=== PATIENT | male | born 1940 | race Caucasian/White ===

== ENCOUNTER → 2019-01-31 06:14 | Outpatient (CLI) | payer MEDICARE, SELFPAY ==
--- NOTE | 2019-01-31 06:22 | ECHOCS_ITS ---
Reason For Study: SOB Procedure This was a 2D Doppler, Color Flow transthoracic echocardiogram. The study was technically difficult. Contrast injection was performed. Exam performed in department. Left Ventricle Normal LV size. Left ventricular systolic function is normal. Stage 1 diastolic dysfunction. No regional wall motion abnormalities noted. Right Ventricle Normal RV size. Normal systolic function. Atria Normal left atrium. Normal right atrium. Mitral Valve Normal mitral valve. Tricuspid Valve The tricuspid valve is not well visualized. Mild tricuspid valve insufficiency. Pulmonary artery systolic pressure is 30 mmHg. Aortic Valve Normal aortic valve. Mild (1+) aortic valve insufficiency. Pulmonic Valve Normal pulmonic valve. Great Vessels Normal aortic root. The pulmonary artery is normal size. Normal inferior vena cava. Pericardium/Pleural No pericardial effusion. Medication Definity3.0ml given slow IV push to enhance endocardial definition. MMode/2D Measurements & Calculations LVIDd: 4.2 cm IVSd: 0.98 cm LVOT diam: 2.0 cm LVIDs: 2.6 cm LVPWd: 0.91 cm RVDd: 3.0 cm FS: 38.7 % LVOT area: 3.3 cm2 Ao root diam: 3.8 cm LAV(MOD-bp): 42.9 ml LA A4 area: 12.0 cm2 LAV(MOD-bp) Indexed: 22.1 ml/m2 LAV(MOD-sp2): 50.1 ml LAV(MOD-sp4): 27.6 ml LA dimension(2D): 3.9 cm RA A4 area: 9.3 cm2 Time Measurements MV dec time: 0.26 sec Doppler Measurements & Calculations MV E max kamaljit: 63.1 cm/sec Lat Peak E' Kamaljit: 7.5 cm/sec Med Peak E' Kamaljit: 4.8 cm/sec MV A max kamaljit: 82.0 cm/sec E/E' lat: 8.4 E/E' med: 13.2 MV E/A: 0.77 Ao V2 max: 129.3 cm/sec AI max kamaljit: 386.7 cm/sec LV V1 max: 87.8 cm/sec Ao max P.7 mmHg AI max P.8 mmHg LV V1 max P.1 mmHg IRASEMA(V,D): 2.2 cm2 AI dec slope: 188.4 cm/sec2 AI P1/2t: 601.3 msec PA V2 max: 93.0 cm/sec TR max kamaljit: 253.1 cm/sec TR max P.7 mmHg Interpretation Summary Normal LV size. Left ventricular systolic function is normal. Stage 1 diastolic dysfunction. Pulmonary artery systolic pressure is 30 mmHg. Mild (1+) aortic valve insufficiency. Contrast injection was performed. Ordering Physician: Cosme Amor Referring Physician: JOAN SMITH Performed By: Katharine Kelly, [facility], RVT
--- NOTE | 2019-01-31 12:18 | STRESSREP ---
Stress Test Report Pharmacologic myocardial perfusion stress test 78-year-old man with a history of chest pain. Stress protocol: Resting EKG demonstrates normal sinus rhythm with a rate of 55 bpm normal intervals are noted resting blood pressures 138/82 mmHg. 0.4 mg of regadenoson was infused per usual protocol followed by rapid intravenous saline flush injection continuous EKG monitoring was performed. The maximum heart rate attained was 71 bpm which was 49% of maximum predicted heart rate the maximum workload was 1 metabolic equivalent. The resting blood pressures 138/82 mmHg final blood pressures 130/70 mmHg. Myocardial perfusion protocol. 12.0 mCi technetium 99m sestamibi was injected at rest. 0.4 mg of regadenoson was infused per usual protocol. Peak infusion 36.0 mCi of technetium 99m sestamibi was injected stress images were obtained stress and rest images were reconstructed and compared in the short axis vertical and horizontal long axis. Gated images was obtained Perfusion SPECT analysis: Review of the stress images demonstrate normal uptake of tracer noted in all rest myocardium the rest images similar demonstrate normal uptake of tracer noted in all rest myocardium no areas of reversibility are noted suggest ischemia. Gated SPECT analysis: The gated ejection fraction was noted to be 74% Conclusion: Normal pharmacologic myocardial perfusion stress test. Preserved ejection fraction.
== END ==
PROVIDERS: Family Provider Student in an Organized Health Care Education/Training Program; PCP Student in an Organized Health Care Education/Training Program
DX: R06.02 Shortness of breath (principal); R00.2 Palpitations
CPT/HCPCS: 78452; 93017; 93306; A9500; Q9957; A4216; C8929; J2785

== ENCOUNTER → 2019-02-04 08:37 | Outpatient (CLI) | payer MEDICARE, SELFPAY ==
[2013-06-17 20:08] VITALS: BMI 29.2
--- NOTE | 2019-02-04 14:36 | PFTCOMP_ITS ---
COMPLETE PULMONARY FUNCTION TEST INTERPRETATION Brief HPI: Patient is a 78 year old male, currently under the care of Dr. Limon, who presents to [facility] for complete pulmonary function tests secondary to diagnosis of dyspnea. Respiratory therapist reports good effort and reproducible results. Interpretation: Forced expiration spirometry shows no large airways obstructive ventilatory defect with an FEV1 of 110% predicted. There is no significant bronchodilator response by strict ATS criteria. Spirograms are of good quality and plateau normally. The respiratory flow volume loop shows a normal pattern. Lung volumes by body plethysmography show a normal total lung capacity at 5.92 L, 106% predicted. All other lung volumes are within normal limits. Diffusion capacity by carbon monoxide is normal at 93% predicted. The airway resistance is slightly elevated. No previous pulmonary function tests were available for review. Impression: These pulmonary function tests are grossly within normal limits.
== END ==
PROVIDERS: Family Provider Student in an Organized Health Care Education/Training Program; PCP Student in an Organized Health Care Education/Training Program; Referring Provider Nurse Practitioner Family; Visit Provider Nurse Practitioner Family
DX: R06.02 Shortness of breath (principal)
CPT/HCPCS: 94060; 94726; 94729

== ENCOUNTER 2020-04-02 23:30 | Inpatient (IN) | payer MEDICARE, SELFPAY ==
[2019-03-21 11:32] VITALS: BMI 30.3
[2020-04-02 23:31] VITALS: BP 151/90; PULSE 99; RESP 17; O2SAT 97
[2020-04-02 23:34] VITALS: PULSE 100; RESP 18; TEMP 36.4; O2SAT 98; BMI 29.0
[2020-04-02 23:37] VITALS: BP 151/90; PULSE 91; RESP 17; TEMP 36.4; O2SAT 96
--- NOTE | 2020-04-02 23:37 | EKG12_ITS ---
Test Reason : STEMI Blood Pressure : / mmHG Vent. Rate : 070 BPM Atrial Rate : 070 BPM P-R Int : 148 ms QRS Dur : 088 ms QT Int : 452 ms P-R-T Axes : 005 014 110 degrees QTc Int : 488 ms Normal sinus rhythm with sinus arrhythmia Inferior infarct , possibly acute T wave abnormality, consider lateral ischemia * ACUTE OK Confirmed by PALOMO MARSHALL, KOBE ([id number]), editor at large CLARA JOHNSON ([id number]) on 04/05/2020 1:12:34 PM Referred By: Florian Hunt Confirmed By:KOBE CULVER MD
[2020-04-02 23:38] VITALS: O2SAT 97
--- NOTE | 2020-04-02 23:38 | ED.VIS.GEN ---
History of Present Illness Chief Complaint: Chest Pain Informant: Patient Narrative: Patient stated he was having increased shortness of breath today and over the last several weeks. He has had chronic shortness of breath and chronic chest tightness. He has had a negative stress test in the past as well as a normal echocardiogram recently. He had COVID-19 on December and has been having trouble since. He was seen outpatient [facility] had EKG that showed inferior STEMI. Given oral aspirin and nitroglycerin and brought in by paramedics. He was accepted by cardiology STEMI physician. Currently the patient is resting comfortably. No pain in his chest. - Past Medical History (1) Palpitations Status: Acute (2) Dyspnea Status: Chronic (3) Essential (primary) hypertension Status: Chronic Past Medical History - Allergies and Home Meds Allergies/Adverse Reactions: Allergies dutasteride [From Avodart] Adverse Reaction (Verified 03/20/19 21:18) dyspnea imipramine Adverse Reaction (Verified 03/20/19 21:18) dyspnea Primary Care Physician: Hilario Kim DO [Primary Care Provider] - Prior records reviewed: Yes Past Medical History: - - See problem list Surgical History: appendectomy Lives: With Family Smoking Status: Heavy Smoker (>10/day) Alcohol: None Drugs: None Review of Systems General: Denies: Chills, Fever, Sweats Eyes: Denies: Visual changes - bilaterally, Diplopia ENT: Denies: Rhinorrhea, Sore throat Cardiovascular: Reports: - - Chronic chest tightness. Denies: Chest pain, Palpitations Respiratory: Reports: Dyspnea. Denies: Cough, Dyspnea on exertion Gastrointestinal: Denies: Abdominal pain, Nausea, Vomiting, Diarrhea, Melena, Hematochezia Genitourinary: Denies: Dysuria, Hematuria, Frequency Musculoskeletal: Denies: Back pain, Extremity Pain Skin: Denies: Rash, Wounds Neurological: Denies: Headache, Weakness, Numbness Physical Exam Vital Signs/Narrative: Vital Signs Temp Pulse Resp Pulse Ox 04/02/20 23:34 97.5 F L 100 18 98 04/02/20 23:31 17 General: Well nourished, Well developed, No Acute Distress Head: Normocephalic, Atraumatic Eyes: Perrl, EOMI ENT: Moist mucous membranes, No rhinorrhea Neck: Supple, Nontender Cardiovascular: Regular rate, Regular rhythm, No murmurs Respiratory: No distress, CTA bilaterally, Chest nontender Abdomen: Soft, Nontender, Nondistended, Normal bowel sounds Back: Nontender, Normal Inspection Extremities: Nontender, No edema Skin: Normal color, No rash Neurological: Alert, Oriented x3, Cranial nerves II-XII grossly intact, Normal Strength, Normal Sensation Psychological: Normal affect, Normal Mood Diagnostic/Tx/Re-eval - Medical Decision Making STEMI alert called from the field. [facility] being mobilized. Cardiology does not want any further medications at this time. I did remove the nitroglycerin off the patient's chest wall as he has having an inferior [place] and I do not want to drop his blood pressures. Disposition is to the [facility] - Critical Care Time Critical care time (excluding procedures): 30-74 minutes ED Disposition - Plan for ED Patient: Disposition: Acute Care Hospital [facility] Diagnosis: ST elevation myocardial infarction (STEMI)
--- NOTE | 2020-04-02 23:45 | RAD_ITS ---
HISTORY: chest pain. EXAM: XR Chest 1 View: COMPARISON: None FINDINGS: # of images incl. paperwork: 1 Calcified pleural plaques are present bilaterally. Some underlying airspace disease is suspected Calcific ASCVD within the aortic arch Heart is not enlarged. Thoracic spondylosis is mild Pulmonary vascularity is slightly indistinct. No effusions. 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 There may be some underlying airspace disease as well. This is difficult to assess through the calcified pleural plaques. Calcific ASCVD within the aortic arch. Recommend comparison with any previous imaging to assess for the acuity of the findings. at [id number] Reported and signed by: Orion England MD Electronically Signed: Orion England MD at 23:56 EST Tel , Service support ,
[2020-04-02 23:49] LABS: Absolute Lymphocyte Count 0.78 X10^3/uL (0.83-4.51); Absolute Neutrophil Count 9.5 X10^3/uL (2.0-7.7); Basophil# 0.03 X10^3/uL; Basophil% 0.3 % (0-1); Eosinophil# 0.02 X10^3/uL; Eosinophils% 0.2 % (0-5); Hematocrit 41.4 % (40-54); Hemoglobin 14.6 g/dL (13.0-16.5); Lymphocyte # 0.78 X10^3/ul (4.0); Lymphocyte % 7.4 % (19-41); Mean Corp Hgb Conc 35.3 g/dL (32-36); Mean Corpuscular Volume 96.5 fL (80-94); Monocyte# 0.12 X10^3/uL; Monocyte% 1.1 % (0-10); NRBC Flagged by Analyzer 0 % (0-5); Neutrophil # 9.48 X10^3/uL (2.7-7.7); Neutrophil % 90.6 % (47-70); Platelet Count 275 K/mm3 (150-450); RBC Distribution Width SD 46.6 fl (35.1-43.9); Red Blood Count 4.29 M/mm3 (4.6-6.2); White Blood Count 10.5 K/mm3 (4.4-11.0)
--- NOTE | 2020-04-02 23:52 | PCM.HP.CAR ---
Problem List (1) ST elevation myocardial infarction (STEMI) Status: Acute Qualifiers: Involved coronary artery: right coronary artery Qualified Code(s): I21.11 - ST elevation (STEMI) myocardial infarction involving right coronary artery Comment: We will proceed with emergency cardiac catheterization (2) Dyspnea Status: Chronic Comment: Secondary to acute inferior wall myocardial infarct, will go for emergency PCI (3) Essential (primary) hypertension Status: Chronic Comment: Patient will go back on lisinopril History of Present Illness Date of Admission: 04/02/20 Chief Complaint: CP The patient is a 79 year old M [developed sudden onset of shortness of breath 3 hours prior to admission. It was seen in another hospital emergency room was found to have acute inferior wall myocardial infarct and was transferred here for further STEMI intervention. His cardiac history dates back at least 6 months ago at that time patient was investigated for substernal heaviness with exertion. Apparently the nuclear stress test and echocardiogram were not impressive. He continues to have on and off left-sided substernal heaviness with exertion associated with shortness of breath. The end of December patient contracted Covid with pneumonia. Was treated at home with steroids. He is known to have hypertension and hyperlipidemia. He is a non-smoker and drinks occasionally. He denies any history of myocardial infarct cerebrovascular accident] Past Medical History Allergies/Adverse Reactions: Allergies dutasteride [From Avodart] Adverse Reaction (Verified 04/02/20 23:41) dyspnea imipramine Adverse Reaction (Verified 04/02/20 23:41) dyspnea Home Medications: Ambulatory Orders Medication Instructions Recorded RX: Citalopram Hydrobromide 40 mg PO DAILY 06/11/13 [Celexa] RX: Diclofenac [Voltaren] 75 mg PO BIDCM #1 06/19/13 aspirin 325 mg tablet 325 mg PO DAILY 03/21/19 lisinopril 10 mg tablet 10 mg PO DAILY #90 tab 03/21/19 Past Medical History (Chronic Problems): Chronic Problems (Last Reviewed 03/21/19 @ 11:40 by Sheeba Martines) Dyspnea (Chronic) Secondary to acute inferior wall myocardial infarct, will go for emergency PCI Essential (primary) hypertension (Chronic) Patient will go back on lisinopril Surgical History: appendectomy, - - Left knee surgery Psychiatric History: No pertinent psych hx Lives: Spouse/ Significant Other, With Family Smoking Status: Heavy Smoker (>10/day) Tobacco Use: Non-smoker Alcohol: None Drugs: None Review of Systems - Review of Systems General: Reports: Fatigue HEENT: Reports: Hearing Changes. Denies: Vision Change Cardiovascular: Reports: Chest Discomfort, Shortness of Breath Respiratory: Reports: Shortness of Breath Gastrointestinal: Denies: Hematemesis, Hematochezia, Melena Genitourinary: Reports: - - Benign prostatic hypertrophy Skin: Denies: Rash Neurological: Reports: Weakness. Denies: Dizziness, Vertigo Endocrine: Denies: Heat Intolerance Hematologic/ Lymphatic: Denies: Lymph Node Enlargement Subjectve: Complaint shortness of breath and left-sided chest tightness Objective: Vital Signs Temp Pulse Resp BP Pulse Ox 97.6 F L 91 17 151/90 H 97 04/02/20 23:37 04/02/20 23:37 04/02/20 23:37 04/02/20 23:37 04/02/20 23:38 Oxygen Flow Rate (L/min) 2 Oxygen Delivery Method Nasal Cannula Weight: 190 lb 14.725 oz Body Mass Index (BMI) 29.0 General: Healthy Appearing, Awake, Alert, Oriented x 3, Cooperative HEENT: Atraumatic Oral: Moist Mucosa Neck: Supple Lungs: Clear to auscultation Cardiovascular: Regular Rhythm, Normal S1, Normal S2, No Murmurs, No Rubs, No Gallops Vascular: No Carotid Bruits, Normal Femoral Pulses, Normal Radial Pulses, Normal Dorsalis Pedal Pulse, Normal Posterior Tibial Pulses Abdomen: Bowel Sounds Present, Soft, Non Tender, No HSM, No Organomegaly Extremities: No Cyanosis, No Clubbing, No edema Neurological: No Focal Motor or Sensory Deficit Psych/Mental Status: Appropriate, Normal Affect VTE Information - Inpt Only VTE Present on Admission: No VTE Pharm Prophylaxis ordered?: Yes 04/02/20 23:35: WBC 10.5, RBC 4.29 L, Hgb 14.6, Hct 41.4, MCV 96.5 H, MCH 34.0 H, MCHC 35.3, Plt Count 275, MPV 9.0, Immature Gran % (Auto) 0.400, Neut % (Auto) 90.6 H, Lymph % (Auto) 7.4 L, Craven % (Auto) 1.1, Eos % (Auto) 0.2, Baso % (Auto) 0.3, Absolute Neuts (auto) 9.5 H, Nucleated RBC % 0 Rhythm: EKG: Acute inferior wall myocardial infarct ECHO: Stress Test: Cardiac Cath: PCI: Successful angioplasty of the proximal long tubular CHIDI and proximal right coronary artery CT Surgery: Holter monitor: EPS: PPM: CXR: Chest CT Scan: Assessment/Plan #1 acute inferior wall myocardial infarct with functional class IV angina, will proceed with emergency cardiac catheterization. The risk has been explained to the patient and the on the phone. Patient is given a consent #2 recent Covid with pneumonia. Chest x-ray tonight still showed pneumonia especially on the right side #3 history of hypertension and hyperlipidemia Inpatient E&M: 28962 Init Hosp L3
[2020-04-02 23:57] LABS: Prothrombin Time (Protime)PT. 12.9 SECONDS (11.7-14.9)
--- NOTE | 2020-04-02 23:57 | ED.RN ---
PT HAD 324 OF ASPIRIN and 1 inch of nitro paste on chest prior to arrival
[2020-04-02 23:58] LABS: Partial Thromboplast Time 30.8 Seconds (24.1-36.2)
[2020-04-03] VITALS (11 sets, daily range): BP systolic 107–119; BP diastolic 52–77; PULSE 64–76; RESP 16–20; TEMP 36.1–36.3; O2SAT 92–97
[2020-04-03 00:13] LABS: Anion Gap 10 (5-15); BUN 19 mg/dL (7-18); Chloride 105 mmol/L (98-107); Creatinine, Serum 1.19 mg/dL (0.70-1.30); EST Glomerular Filtration Rate 63 mL/min (>60); Est Glom Filt Rate - Afr Amer 76 mL/min (>60); Glucose 177 mg/dL (74-106); Sodium Level 136 mmol/L (136-145)
[2020-04-03] MEDS: HEPARIN/D5w 25,000 UNITS 25,000 UNITS/250 ML IV.SOLN. 10 UNITS IV (00:42)
--- NOTE | 2020-04-03 01:44 | PCI.CARDCATH ---
PCI Cardiac Cath Report PCI Report: Procedure: Left heart cardiac catheterization, left ventriculogram, coronary arteriography and angioplasty of the proximal and distal right coronary artery Clinical history: 79-year-old white male developed sudden onset of chest pain and shortness of breath 3 hours prior to admission. EKG showed acute inferior wall myocardial infarct Indication: STEMI with functional class IV angina Heart failure: No Stress/imaging: None CAD presentation: As stated above Summary: #1 successful angioplasty of the proximal posterolateral branch of the distal right coronary artery, type C lesion, pre-PCI stenosis was 80%, post PCI stenosis was less than 20%. NIKKY-2 flow improved to NIKKY-3 flow after the angioplasty #2 assess for angioplasty of the proximal right coronary artery, type A lesion, pre-PCI stenosis was 75%, post PCI stenosis was less than 20%. 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 He will be maintained on aspirin and IV heparin until transfer to [facility] tomorrow Procedure Details The risks, benefits, complications, treatment options, and expected outcomes were discussed with the patient. The patient and/or family concurred with the proposed plan, giving informed consent. Patient was brought to the labor representative after IV hydration . Patient was further sedated with IV conscious sedation. Subject was prepped and draped in the usual manner. Using the modified Seldinger access technique, a 6 [place] sheath were placed in the right radial and right femoral arteries. Standard diagnostic catheters were used. Exchanges were performed over J-wire. At the end of the procedures, all catheters and sheaths were removed and bleeding was stopped with closure device using TR band for the right radial artery. The right femoral arterial sheath was left in place for subsequent hemodynamic monitoring Findings: Moderate Sedation: Conscious sedation was administered under my supervision with cardiorespiratory monitoring performed by independent and qualified nursing personnel. Medications and dosages are recorded separately in the electronic medical record. Left ventriculogram: Left ventriculogram was performed in the right anterior oblique projection. The left ventricle was normal in size with normal wall motion Hemodynamics: BP 120/70 LVEDP 16 HR 85/min EF 60% Comment: Ejection fraction was normal, left ventricular end-diastolic pressure was moderately elevated Coronary Anatomy: Right dominance Left Main : Normal LAD: Left anterior descending was normal in caliber. The left anterior descending just reached the apex. There was a long tubular stenosis at the bifurcation with the first major diagonal branch. The long tubular stenosis compromised the lumen by up to 90%. Diagonals : The major diagonal branch had a long proximal and ostial stenosis compromising lumen by 90%. The mid and distal diagonal branch were normal in caliber and free of significant disease Circumflex : Left circumflex was a normal to small sized vessel. It supplied a large major marginal branch which was occluded proximally. It filled via left to left collateral Major Obtuse Marginals : The second obtuse marginal branch was small and free of significant disease Right Coronary Artery: Right coronary artery was a large-caliber vessel. Proximally there was a short segment stenosis compromising lumen by 80%. Shortly after that the proximal right coronary artery had another short segment stenosis compromising lumen by 60%. The posterior descending was large in caliber and free of significant disease. The posterolateral branch was large in caliber and had a long proximal tubular stenosis compromising lumen by at least 90%. It subdivided into 2 secondary branches. They were normal in caliber and free of significant disease. There was NIKKY II flow down the 2 branches Intervention Lesion: Angioplasty of the right coronary artery Guiding Catheter used 6 [place] right Buddy 4 guiding catheter Guide Wire used: Run-through balloon used: Emerge: 2.0x15, 2.5x15 stents Used: None Procedure in detail: The wire had no difficulty passing down the distal right coronary artery into the anterior secondary branch of the posterolateral branch. 2.0 balloon was then used to dilate this long tubular stenosis of the CHIDI at 20 amy. The balloon was then pulled back to the proximal right coronary artery near the ostium and inflated to 20 amy. This was exchanged for the 2.5 balloon. It inflated the distal right coronary artery first at 16 amy. The posterior secondary branch of the CHIDI was compromised after the inflation with NIKKY I flow. This required redirecting the guidewire into the posterior branch. The 2.0 balloon was then used to dilate the proximal posterior secondary branch at 16 amy. NIKKY-3 flow was reestablished. The 2.5 balloon was also used to dilate the proximal right coronary artery at 20 amy. Residual stenoses was less than 20% at the proximal right coronary artery as well as the proximal posterolateral branch. At the conclusion of the angioplasty, NIKKY-3 flow was reestablished Estimated Blood Loss: Minimal} Complications: None Disposition condition: Stable
--- NOTE | 2020-04-03 01:45 | EKG12_ITS ---
Test Reason : CP Blood Pressure : / mmHG Vent. Rate : 072 BPM Atrial Rate : 072 BPM P-R Int : 164 ms QRS Dur : 092 ms QT Int : 402 ms P-R-T Axes : 055 010 123 degrees QTc Int : 440 ms Sinus rhythm with Premature supraventricular complexes Inferior infarct , possibly acute T wave abnormality, consider lateral ischemia * ACUTE [place] Abnormal ECG When compared with ECG of 03-APR-2020 01:43, MANUAL COMPARISON REQUIRED, DATA IS UNCONFIRMED Confirmed by PALOMO MARSHALL, KOBE ([id number]), advertising editor CLARA JOHNSON ([id number]) on 04/05/2020 1:12:12 PM Referred By: Florian Hunt Confirmed By:KOBE CULVER MD
[2020-04-03 02:13] LABS: Cholesterol 316 mg/dL (200); High Density Lipoprotein 46 mg/dL; Triglycerides 117 mg/dL; Very Low Density Lipoprotein 23 mg/dL (5-40)
[2020-04-03] MEDS: 0.9% Normal Saline 1,000 ML 50 ML IV (02:58)
--- NOTE | 2020-04-03 03:56 | PCM.PN.HOSP ---
Patient Problems: Active and Suspected Problems (Last Reviewed 03/21/19 @ 11:40 by Sheeba Martines) ST elevation myocardial infarction (STEMI) (Acute) We will proceed with emergency cardiac catheterization Palpitations (Acute) Reason for Visit: Consult for medical management Subjective: 79-year-old male with past medical history of hypertension, hyperlipidemia who comes in with progressive chest discomfort and shortness of breath. Patient was seen in the [place] ED and found to have acute inferior CT and transferred here for STEMI intervention. Patient stated that he has been having progressive chest discomfort, worse with exertion ongoing for months. He had recent work-up that was not impressive. He recently was diagnosed with Covid at the end of December. Vitals were stable in the emergency department. Patient underwent emergent cardiac catheterization. Findings showed long tubular stenosis in the LAD at the bifurcation with the first major diagonal branch, 90% stenosis. Diagonal branches had 90% stenosis. RCA had an 80% occlusion. Patient had ballon angioplasty of the right coronary artery. He was referred to [facility] for CABG. At the time of being seen, patient was awaiting bed. Vitals/I&O's: Vital Signs Temp Pulse Resp BP Pulse Ox 97 F L 70 18 117/57 L 92 04/03/20 01:32 04/03/20 03:30 04/03/20 03:30 04/03/20 03:30 04/03/20 03:30 Oxygen Flow Rate (L/min) 2 Oxygen Delivery Method Room Air Weight: 86.6 kg Body Mass Index (BMI) 29.0 Intake and Output for Last 24 Hours 04/01/20 04/02/20 04/03/20 23:59 23:59 23:59 Intake Total 0 / 0 Output Total 0 / 0 Balance 0 / 0 General: Alert, Oriented x3, Cooperative HEENT: Atraumatic, PERRLA, EOMI, Normocephalic Oral: Moist Mucosa Neck: Supple Lungs: Clear to auscultation, Normal air movement Cardiovascular: Regular rate, Regular Rhythm, Normal S1, Normal S2, No murmurs Abdomen: Bowel Sounds Present, Soft, Non Tender, Non-Distended, No Hepato-splenomegaly Extremities: No edema Skin: No rashes, No breakdown Musculoskeletal: No Tenderness to Palpation of Joints or Extremities Lymphatic: No Cervical, Supraclavicular, or Inguinal Adenopathy Neurological: Cranial nerves II-XII grossly intact, Neuro grossly intact Psych/Mental Status: Normal Affect, Appropriate Microbiology Past 72 Hours 04/03/20 02:10 Mucosa - Nose SARS-CoV-2 Antigen (Rapid) - Final Laboratory Results 04/02/20 23:35: WBC 10.5, RBC 4.29 L, Hgb 14.6, Hct 41.4, MCV 96.5 H, MCH 34.0 H, MCHC 35.3, RDW Std Deviation 46.6 H, RDW Coeff of Fritz 13.0, Plt Count 275, MPV 9.0, Immature Gran % (Auto) 0.400, Neut % (Auto) 90.6 H, Lymph % (Auto) 7.4 L, [place] % (Auto) 1.1, Eos % (Auto) 0.2, Baso % (Auto) 0.3, Absolute Neuts (auto) 9.5 H, Absolute Lymphs (auto) 0.78 L, Nucleated RBC % 0 04/02/20 23:35: PT 12.9, INR 1.0, APTT 30.8 04/02/20 23:35: Sodium 136, Potassium 4.0, Chloride 105, Carbon Dioxide 21.0, Anion Gap 10, BUN 19 H, Creatinine 1.19, Estim Creat Clear Calc 49.50, Est GFR (MDRD) Af Amer 76, Est GFR (MDRD) Non-Af 63, BUN/Creatinine Ratio 16.0, Glucose 177 H, Calcium 9.0, Troponin I 3.870 H* 04/02/20 23:35: Triglycerides 117, Cholesterol 316 H, LDL Cholesterol 247 H, VLDL Cholesterol 23, HDL Cholesterol 46 Current Medications Aspirin (Aspirin E.C. 81 Mg Tablet) 81 mg PO DAILY@0800 DEX Atorvastatin Calcium (Atorvastatin Calcium 40 Mg Tablet) 40 mg PO QHS PENDING SALE TO [facility] Atropine Sulfate (Atropine Sulfate 1 Mg/10 Ml Syringe) 0.5 mg IV UD PRN PRN Reason: HR <50 bpm Carvedilol (Carvedilol 3.125 Mg Tablet) 3.125 mg PO BID DEX Heparin Sodium (Beef Lung) (Heparin Lock 500 Unit/5 Ml In 10 Ml Syringe) 500 unit IV UD PRN PRN Reason: HEPARIN FLUSH Heparin Sodium (Porcine) (Heparin Injection (Vial) 5,000 Unit/Ml Vial) 0 unit IV UD PRN; Protocol PRN Reason: dose adjustment Sodium Chloride () 1,000 mls @ 50 mls/hr IV .Q20H DEX Stop: 04/03/20 21:34 Last Admin: 04/03/20 02:58 Dose: 50 mls/hr Documented by: Heparin Sodium/Dextrose () 25,000 units in 250 mls @ 12 mls/hr IV .[id number] DEX; Protocol Last Admin: 04/03/20 00:42 Dose: 1,000 units/hr, 10 mls/hr Documented by: Labetalol HCl (Labetalol (Prefilled) 20 Mg/4 Ml) 5 mg IV X1 PRN PRN Reason: SBP >160 when pulling sheath Stop: 04/05/20 01:33 Sodium Chloride (0.9% Normal Saline 500 Ml Iv.Soln.) 500 ml IV BOLUS PRN PRN Reason: VASO-VAGAL PROTOCOL Sodium Chloride (0.9% Saline Lock 10 Ml Syringe) 10 - 40 ml IV UD PRN PRN Reason: SALINE FLUSH STROKE Vital Signs/Narrative: Vital Signs Temp Pulse Resp BP Pulse Ox 04/03/20 03:30 70 18 117/57 L 92 04/03/20 03:00 71 16 112/54 L 95 04/03/20 02:30 75 16 110/53 L 95 04/03/20 02:15 69 17 115/55 L 94 04/03/20 02:00 69 20 H 114/56 L 92 04/03/20 01:45 66 19 H 107/52 L 97 04/03/20 01:34 67 04/03/20 01:32 97 F L 64 16 116/77 95 Medical Necessity - Tobacco Use Smoking Status: Never smoker Tobacco Use: Non-smoker Assessment/Plan All Active Problems (Last Reviewed 03/21/19 @ 11:40 by Sheeba Martines) ST elevation myocardial infarction (STEMI) (Acute) Palpitations (Acute) 1. Acute STEMI status post cardiac catheterization that showed triple-vessel disease; balloon angiography of the RCA, Continue on aspirin, statin, carvedilol, heparin drip Patient will be discharged to [facility] for cardiothoracic evaluation for CABG 2. Hypertension, blood pressure is uncontrolled, continue on carvedilol 3. Hyperlipidemia, continue statin 4. DVT prophylaxis?patient is on heparin drip Inpatient E&M: 58012 Init Hosp L3
[2020-04-03] MEDS: Morphine 2 MG/ML Syringe IV (05:05)
[2020-04-03 06:30] LABS: Partial Thromboplast Time > 250.0 Seconds (24.1-36.2)
--- NOTE | 2020-04-03 06:41 | NURSING ---
0610 pt transferred to [facility], report called to receiving facility and to transport team. 630 RN notified of pts PTT>250 after pts departure from unit. Receiving [facility] notified and transport team notified to hold gtt
--- NOTE | 2020-04-05 07:02 | CRPHASE1 ---
Patient Communication PHII Cardiac Rehab Discussed with Patient:: Yes - Patient being transferred to [facility] for CABG; awaiting bed. Guide to Cardiac Rehab Given to Patient:: Yes Cardiac Rehab Facility Choice List Given to Patient:: Yes Choice Program [facility] CR PHII:: Communication Given to CR, Refer to [facility] Applier:: Florian Hunt Refer Phase II Cardiac Rehab:: Yes Sessions:: 36 sessions - 3 days/wk, 12 weeks Risk Factors/Lifestyle Family History: Family History (Last Updated 03/21/19 @ 11:41 by Sheeba Martines) Mother Heart disease Father Heart disease Brother Hypertension Laboratory Values: Cardiac Rehab Phase I Labs Triglycerides 117 mg/dL (-199) 04/02/20 23:35 Cholesterol 316 mg/dL (200) H 04/02/20 23:35 LDL Cholesterol 247 mg/dL (0-130) H 04/02/20 23:35 HDL Cholesterol 46 mg/dL (40-) 04/02/20 23:35 Cardiac Rehabilitation Info Cardiac Rehabilitation Program Information: Cardiac Rehabilitation is important for patients like you who are recovering from a heart problem. Cardiac rehabilitation programs are recognized as integral to the continued care of the patient with coronary heart disease. The cardiac rehabilitation program is designed to optimize a patient's physical, psychological, and social functioning. Health disabilities caregiver work in cardiac rehabilitation programs and assist you with getting the treatments you need to get stronger and healthier - like exercise, healthy eating habits, and medications. Cardiac rehabilitation has been show to help people with heart problems live longer and have better life enjoyment than people who do not go to cardiac rehabilitation. Please contact the Cardiac Rehabilitation Program at [facility] at in two weeks if you have not heard from them.
--- NOTE | 2020-04-05 07:03 | CRPH1.INST_ITS ---
General Education CAD and cardiac anatomy and function:: Not instructed Explanation of diagnoses and procedures:: Not instructed Sign/Symptoms of WI:: Not instructed Antiplatelet therapy: Not instructed Proper use of NTG-SL: Not instructed Emergency procedures and activation of EMS: Not instructed Compliance of all prescribed medications: Not instructed - Patient was a STEMI with initial intervention by Dr. Hunt. Patient was in ICU awaiting bed at [facility] for CABG surgery.
--- NOTE | 2020-04-17 11:51 | PCM.DC.SUM ---
<Florian Hunt - Last Filed: 04/25/20 23:15> Discharge Date and Diagnosis - Problem List Patient Problems: Active and Suspected Problems (Last Updated 04/03/20 @ 09:34 by Sheeba Martines) Palpitations (Acute) ST elevation myocardial infarction (STEMI) (Acute 04/02/20) Date of Admission: 04/02/20 Date of Discharge: 04/03/20 - Primary Discharge Diagnosis Acute Problems: Active Problems (Last Updated 04/03/20 @ 09:34 by Sheeba Martines) Palpitations (Acute) ST elevation myocardial infarction (STEMI) (Acute 04/02/20) - Secondary Discharge Diagnosis Chronic Problems: Chronic Problems (Last Updated 04/03/20 @ 09:34 by Sheeba Martines) Dyspnea (Chronic) Secondary to acute inferior wall myocardial infarct, will go for emergency PCI Essential (primary) hypertension (Chronic) Patient will go back on lisinopril Hyperlipidemia (Chronic) Hospital Course and Treatment Imaging Results: see cath report cardiology consult Operations: None Procedures: Cardiac catheterization - Triple vessel disease with severe distal RCA which was treated with PTCA. NIKKY 3 flow was re-established. He is a candidate for CABG, EKG - acute inferior wall IN Summary of Care Provided: The patient is a 79 year old M [had inferior wall IN, emergency PTCA of the distal RCA was performed. Because of severe triple vessel disease he was transferred to [facility] for CABG. He was maintained on IV heparin , ASA but no P2Y12 antiplatelet because of upcoming CABG] Patient Problems: Active and Suspected Problems (Last Updated 04/03/20 @ 09:34 by Sheeba Martines) Palpitations (Acute) ST elevation myocardial infarction (STEMI) (Acute 04/02/20) Subjective: admitted for STEMI treated successfully with stenting, post PCI no CP. Objective: as the following - Physical Exam Vitals/I&O's: Vital Signs Temp Pulse Resp BP Pulse Ox 97.3 F L 70 19 H 119/59 L 93 04/03/20 04:00 04/03/20 05:34 04/03/20 04:00 04/03/20 04:00 04/03/20 04:00 Oxygen Flow Rate (L/min) 2 Oxygen Delivery Method Room Air Weight: 190 lb 14.725 oz Body Mass Index (BMI) 29.0 General: Alert, Oriented x3 Oral: Moist Mucosa Neck: Supple Lungs: Clear to auscultation, Normal air movement Cardiovascular: Regular rate, Normal S1, Normal S2, No murmurs Abdomen: Bowel Sounds Present, Soft, Non Tender Extremities: No edema, Capillary Refill Less than 3 Seconds Skin: No rashes, No breakdown Musculoskeletal: No Tenderness to Palpation of Joints or Extremities Lymphatic: No Cervical, Supraclavicular, or Inguinal Adenopathy Neurological: Cranial nerves II-XII grossly intact Psych/Mental Status: Normal Affect, Appropriate Discharge Diet: Light diet - advance as tolerated Discharge Activity: May Not Drive - transfer to [facility] for CABG May resume sexual activity in: 1-2 weeks Weight Bearing Status: Full weight bearing Call your doctor if your incision/area has: Continuous Slow Oozing, Sudden Increased Bleeding Call your doctor if you observe: Fever of 101 or Higher, Coldness, Increased Pain, Dizziness, Fainting spells Home Medications: Medications to take at Discharge Citalopram Hydrobromide [Celexa] 40 mg PO DAILY 06/11/13 lisinopril 10 mg tablet 10 mg PO DAILY #90 tab 03/21/19 albuterol sulfate 90 mcg/actuation aerosol inhaler 1 inh INHALATION ONCE 04/21/20 aspirin 81 mg tablet,delayed release 81 mg PO DAILY 04/21/20 atorvastatin 80 mg tablet 80 mg PO DAILY 04/21/20 metoprolol tartrate 25 mg tablet 25 mg PO BID 04/21/20 ticagrelor 90 mg tablet 90 mg PO BID 04/21/20 Isosorbide Mononitrate [Isosorbide Mononitrate ER] 30 mg PO DAILY 04/25/20 Primary Care Physician: Hilario Kim DO [Primary Care Provider] - Disposition: transfer to [facility] for CABG Medical Necessity - Tobacco Use Smoking Status: Never smoker Tobacco Use: Non-smoker Meaningful Use Info Meaningful Use Diagnoses (Choose all that apply): None applicable - AMI/Post PCI/Angioplasty Aspirin given w/in 24hrs of arrival?: Yes ASA at discharge?: Yes Antiplatelet Therapy at Discharge:: No Reason Antiplatelet Therapy not ordered:: up coming CABG Statins at discharge?: Yes Randal/ARB at discharge?: Yes Beta Emily at discharge?: Yes Done w/ Acute IN measure.: No - CHF RANDAL/ARB ordered at discharge?: No - CVA Therapy Assessed for PT,OT and/or ST?: No - Ischemic Stroke Antithrombotic order at d/c?: No Dx of Atrial fib/flutter?: No Anticoagulant at discharge?: No Statins at discharge?: Yes Primary Dx Acute Ischemic CVA?: No IV tPA ordered during stay?: No - VTE Anticoag overlap given w/in hospital stay or rx'd at dc?: Yes Pt receive overlap for 5 days?: Yes Inpatient E&M: 23857 Init Hosp L2 <Ruben Ralph - Last Filed: 04/26/20 07:43> Discharge Date and Diagnosis - Primary Discharge Diagnosis Acute Problems: Active Problems (Last Updated 04/03/20 @ 09:34 by Sheeba Martines) Palpitations (Acute) ST elevation myocardial infarction (STEMI) (Acute 04/02/20) - Secondary Discharge Diagnosis Chronic Problems: Chronic Problems (Last Updated 04/03/20 @ 09:34 by Sheeba Martines) History of coronary artery stent placement (Chronic) S/P drug-eluting stent to RCA, LAD, and RPLV at [facility] on 04/06/2020; Dyspnea (Chronic) Secondary to acute inferior wall myocardial infarct, will go for emergency PCI Atherosclerotic heart disease [place] coronary artery w/angina pectoris (Chronic) S/p angioplasty to proximal posterior lateral branch of distal RCA and proximal RCA on 04/03/2020; status post drug-eluting stent to RCA, LAD, and RPLV at [facility] on 04/06/2020; Essential (primary) hypertension (Chronic) Hyperlipidemia (Chronic) Hospital Course and Treatment Summary of Care Provided: The patient is a 79 year old M [] - Physical Exam Vitals/I&O's: Vital Signs Temp Pulse Resp BP Pulse Ox 97.3 F L 70 19 H 119/59 L 93 04/03/20 04:00 04/03/20 05:34 04/03/20 04:00 04/03/20 04:00 04/03/20 04:00 Oxygen Flow Rate (L/min) 2 Oxygen Delivery Method Room Air Weight: 190 lb 14.725 oz Body Mass Index (BMI) 29.0
== END 2020-04-03 06:10 | disposition short-term general hospital (02) | DRG 251 ==
LOC: ED 23:40 → ICU 23:48
PROVIDERS: Admitting Provider Internal Medicine; Emergency Provider Emergency Medicine; PCP Student in an Organized Health Care Education/Training Program; Referring Provider Internal Medicine Cardiovascular Disease; Visit Provider Internal Medicine Cardiovascular Disease
DX: I21.11 ST elevation (STEMI) myocardial infarction involving right coronary artery (principal); E78.5 Hyperlipidemia, unspecified; I10 Essential (primary) hypertension; F17.200 Nicotine dependence, unspecified, uncomplicated; Z86.16 Personal history of COVID-19; Z79.82 Long term (current) use of aspirin; Z79.899 Other long term (current) drug therapy
CPT/HCPCS: 71045; 80048; 80061; 84484; 85025; 85610; 85730; 87426; 92921; 92941; 93005; 93458; 99152; 99153; 99285; C1887; J7030; J7040; A4216; C1725; C1769; C1894; C9606; Q9967

== ENCOUNTER → 2021-07-19 | Outpatient (CLI) | payer MEDICARE, SELFPAY ==
--- NOTE | 2021-07-19 10:05 | RAD_ITS ---
INDICATION: SOB EXAMINATION/TECHNIQUE: X-RAY - XR Chest 2 Views COMPARISON: 04/02/2020 FINDINGS: LINES/DEVICES: None. There is similar extent and distribution of bilateral diffuse calcified pleural plaque. Chronic emphysematous changes. Bibasilar atelectasis. No focal consolidations, effusions, or sizable pneumothorax. Cardiomediastinal silhouette is within normal limits. No acute findings in the bones or soft tissues. RAD/Chest PA and Lateral IMPRESSION: 1. No acute cardiopulmonary process. Stable exam since March 2020 2. Similar bilateral diffuse calcified pleural plaque which could relate to asbestos exposure. Underlying parenchymal nodules or lesions cannot be entirely excluded. If clinical concerns, nonemergent low-dose CT chest can be obtained for further assessment. Electronically Signed: Lon Balderrama, at 11:19 EDT ,
[2021-07-19 11:57] LABS: Thyroid Stim Hormone (TSH) 2.49 uIU/mL (0.358-3.74)
== END | disposition home or self-care (01) ==
PROVIDERS: PCP Student in an Organized Health Care Education/Training Program; Referring Provider Physician Assistant Medical; Visit Provider Physician Assistant Medical
DX: I10 Essential (primary) hypertension (principal); E78.5 Hyperlipidemia, unspecified; Z98.61 Coronary angioplasty status; R53.83 Other fatigue
CPT/HCPCS: 36415; 71046; 84443

== ENCOUNTER 2023-11-09 09:10 | Emergency (ER) | payer MEDICARE, SELFPAY ==
[2023-11-09 09:10] VITALS: BP 115/73; PULSE 94; RESP 14; TEMP 36.6; O2SAT 95; BMI 27.6
[2023-11-09 09:42] VITALS: O2SAT 97
--- NOTE | 2023-11-09 09:42 | RAD_ITS ---
INDICATION: chest pain EXAMINATION/TECHNIQUE: X-RAY - XR Chest 1 View COMPARISON: Prior study dated: 07/19/2021 FINDINGS: LINES/DEVICES: None. LUNGS: Scattered densities likely due to calcified pleural plaques. No new infiltrate is seen. No evidence of pleural effusions. MEDIASTINUM AND CARDIOVASCULAR STRUCTURES: Cardiac silhouette not enlarged. Central airways and mediastinal contour are unremarkable. BONES AND SOFT TISSUES: Unremarkable. RAD/Chest 1 View (Portable) IMPRESSION: No radiographic evidence of acute cardiopulmonary disease. Electronically Signed: Mesfin Ramirez MD at 10:25 EDT ,
--- NOTE | 2023-11-09 09:42 | EKG12_ITS ---
Test Reason : CP Blood Pressure : / mmHG Vent. Rate : 072 BPM Atrial Rate : 072 BPM P-R Int : 154 ms QRS Dur : 084 ms QT Int : 362 ms P-R-T Axes : 009 -13 035 degrees QTc Int : 396 ms Normal sinus rhythm with sinus arrhythmia Inferior infarct , age undetermined Abnormal ECG Confirmed by Hilario Cohen ([id number]), assistant film editor CLARA JOHNSON ([id number]) on 11/12/2023 9:18:11 AM Referred By: Confirmed By:Hilario Cohen
[2023-11-09 10:04] LABS: Absolute Neutrophil Count 6.3 X10^3/uL (2.0-7.7); Basophil# 0.05 X10^3/uL; Basophil% 0.5 % (0-1); Eosinophil# 0.08 X10^3/uL; Eosinophils% 0.9 % (0-5); Hematocrit 42.7 % (40-54); Hemoglobin 15.1 g/dL (13.0-16.5); Lymphocyte % 18.3 % (19-41); Mean Corp Hgb Conc 35.4 g/dL (32-36); Mean Corpuscular Hgb 34.6 pg (27.0-32.0); Mean Corpuscular Volume 97.7 fL (80-94); Mean Platelet Vol. 8.6 fl (6.2-12.0); Monocyte# 1.12 X10^3/uL; Monocyte% 12.1 % (0-10); NRBC Flagged by Analyzer 0 % (0-5); Neutrophil # 6.29 X10^3/uL (2.7-7.7); Neutrophil % 67.8 % (47-70); Platelet Count 217 K/mm3 (150-450); RBC Distribution Width CV 11.9 % (11.6-14.6); RBC Distribution Width SD 43.6 fl (35.1-43.9); Red Blood Count 4.37 M/mm3 (4.6-6.2); White Blood Count 9.3 K/mm3 (4.4-11.0)
[2023-11-09 10:27] LABS: Anion Gap 4 (5-15); BUN 8 mg/dL (7-18); BUN/Creat Ratio 10.4 RATIO (10-20); Calcium,Total 9.4 mg/dL (8.5-10.1); Chloride 104 mmol/L (98-107); Creatinine, Serum 0.77 mg/dL (0.70-1.30); EST Glomerular Filtration Rate 103 mL/min (>60); Est Glom Filt Rate - Afr Amer 124 mL/min (>60); Glucose 109 mg/dL (74-106); Potassium 4.4 mmol/L (3.5-5.1); Sodium Level 136 mmol/L (136-145); Troponin-I HS (w/2H Reflex) 17 pg/mL (3.0-78.0)
[2023-11-09 11:10] VITALS: BP 127/71; PULSE 62; RESP 16; O2SAT 96
[2023-11-09 12:00] LABS: Reflex Troponin-HS? (from REC) Y
[2023-11-09 12:35] LABS: Troponin-I HS 18 pg/mL (3.0-78.0)
--- NOTE | 2023-11-09 12:43 | CHAPLAIN ---
Type of Pastoral Visit _x__ Initial Visit ___ Follow-up Visit ___ On-call Visit ___ General Patient Visit ___ Spiritual Assessment ___ Family Conference ___ Bereavement ___ Rapid Response ___ Code Blue ___ Other (describe below) Pastoral Care Referral From ___ Patient _x__ Family ___ Nurse ___ Physician ___ Photograph Printer ___ Despatching And Receiving Clerk ___ Other (describe below) Sacrament/Intervention _x__ Active listening ___ Anointing ___ Anabaptist ___ Bereavement ___ Communion ___ Ame exploration ___ _x__ Life review _x__ Prayer ___ Reconciliation ___ Sacrament of Sick ___ Supportive presence ___ Wedding ___ Other (describe below) Pastoral Comments
[2023-11-09 13:00] VITALS: BP 140/71; PULSE 67; RESP 18; O2SAT 98
--- NOTE | 2023-11-09 13:09 | ED.VIS.CHEST ---
HPI History of Present Illness Chief Complaint: Chest Pain Detail of Chief Complaint: Sharp central chest pain Informant: patient Onset/Context/Timing Onset: Days (3 days ago lifting car ramps) Activity at onset: sudden Timing: Continuous Quality: Positive for Sharp Location: - (Central chest pain) Current Severity: Mild Maximum Severity: Moderate Worsened By: Nothing Relieved By: Nothing Associated Symptoms: Positive for Dyspnea; Negative for Nausea, Vomiting, Diaphoresis, Cough, Fever, Lightheadedness, Acid Reflux or Palpitations Narrative Narrative: Patient is an 83-year-old male. Patient has history of hypertension, hyperlipidemia ST elevation [facility] March 2020. 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 Patient had 5 stents placed at [facility]. The discharge summary cath report were reviewed from [facility] Patient denies any exacerbating, or alleviating factors. Patient denies black or maroon-colored stool. Patient denies epigastric pain. Patient denies intolerance to greasy or fried foods. Patient denies history of biliary disease. Patient denies back pain of any type including ripping or tearing. He denies pleuritic pain. Review of prior records indicate patient had dyspnea and did not have chest pain when he had his NH. Prior Similar Symptoms: No Recent Illness/Hospitalization: No CVD Risk Factors: Positive for Hypertension and Hypercholesterolemia; Negative for Family History 1' </=55 PE Risk Factors: Negative for Recent Travel/Surgery, Recent Immobilization, Prior DVT or PE, Cancer or OCP + Smoking + >/=35 TAD Risk Factors: Positive for Hypertension; Negative for Marfan's Syndrome or Family History [facility] Medical History History of ST elevation myocardial infarction (STEMI) (04/02/20) Old inferior wall myocardial infarction Hyperlipidemia Atherosclerotic heart disease [place] coronary artery w/angina pectoris Impotence Depressive disorder Osteoarthritis Essential (primary) hypertension Home Medications ?Medication ?Instructions ?Recorded ?Last Taken ?Type aspirin 81 mg tablet,delayed 81 mg PO DAILY 04/21/20 Unknown History release acetaminophen 500 mg tablet 500 mg PO BID PRN 05/05/20 Unknown History turmeric 400 mg capsule 800 mg PO 07/19/21 Unknown History atorvastatin 80 mg tablet 80 mg PO DAILY #90 tabs 03/23/23 Unknown Rx citalopram 20 mg tablet 20 mg PO DAILY 03/23/23 Unknown History isosorbide mononitrate 30 mg See Rx Instructions .Route 03/23/23 Unknown Rx tablet,extended release 24 hr .COMPLEX #90 tabs lisinopril 5 mg tablet 5 mg PO DAILY #90 tabs 03/23/23 Unknown Rx multivitamin (Daily Multi-Vitamin 1 tab PO DAILY 03/23/23 Unknown History tablet) citalopram 40 mg tablet 40 mg PO DAILY 11/09/23 Unknown History Allergy/AdvReac Type Severity Reaction Status Date / Time bee venom protein (honey Allergy Swelling Verified 11/09/23 09:31 bee) (bee sting) dutasteride (From Avodart) AdvReac dyspnea Verified 11/09/23 09:31 imipramine AdvReac dyspnea Verified 11/09/23 09:31 Family History Mother Heart disease chf Father Heart disease chf Brother Hypertension Surgical History History of left heart catheterization (04/06/20) History of coronary angioplasty (04/03/20) History of herniorrhaphy History of left knee replacement (2013) Social History Smoking Status: Never smoker alcohol intake: never substance use type: does not use caffeine: Yes Type: coffee Number of servings: 2 ROS ROS ED Constitutional Constitutional ED: Denies chills, fever(s), subjective or sweats Eyes Eyes: Reports none ENT ENT ED: Denies ear pain or rhinorrhea Cardiovascular Cardiovascular: Reports as per HPI; Denies orthopnea or paroxysmal nocturnal dyspnea Respiratory/Chest Respiratory/Chest: Reports dyspnea; Denies cough, dyspnea on exertion, orthopnea or paroxysmal nocturnal dyspnea Gastrointestinal Gastrointestinal: Denies abdominal pain, nausea or vomiting Genitourinary Genitourinary ED: Denies dysuria, hematuria or urinary frequency Musculoskeletal Musculoskeletal: Denies arthralgias, back pain or myalgias Integumentary Denies rash Neurologic Neurologic: Denies paresthesias or weakness Hematologic/Lymphatic Hematologic/Lymphatic: Denies easy bleeding or easy bruising Allergic/Immunologic Allergic/Immunologic ED: Denies mouth swelling or tongue swelling EXAM Physical Exam Const Vital Signs: 11/09/23 09:10 11/09/23 09:25 11/09/23 09:42 Temperature 98 F Temperature Source Temporal Pulse Rate 94 Respiratory Rate 14 Respiratory Effort Short of Breath Blood Pressure 115/73 Blood Pressure Mean 87 Pulse Ox 95 97 Oxygen Delivery Method Room Air Room Air 11/09/23 11:10 11/09/23 13:00 Temperature Temperature Source Pulse Rate 62 67 Respiratory Rate 16 18 Respiratory Effort Blood Pressure 127/71 H 140/71 H Blood Pressure Mean 89 94 Pulse Ox 96 98 Oxygen Delivery Method Room Air Room Air Positive well nourished and well developed General Appearance ED: well developed and NAD; Negative for pallor HEENT Reports moist mucous membranes normocephalic and atraumatic Eyes PERRL and EOMs intact bilaterally General Eye ED: Negative for pale conjunctiva or scleral icterus Neck no lymphadenopathy, supple and no JVD Chest Wall inspection of chest normal and palpation of chest normal Resp normal respiratory effort and clear to auscultation bilaterally Cardio regular rate, regular rhythm, S1 normal heart sound, S2 normal heart sound and no murmurs GI normal to inspection, nondistended, normoactive bowel sounds, soft to palpation, non-tender, non-distended and no masses; Negative for hepatosplenomegaly Back/Spine no CVA tenderness Extremity normal to inspection General Extremety ED: Negative for edema or pulses abnormal General Extremity: Negative for edema or pulses abnormal Neuro oriented x3 and CN's II-XII intact bilaterally Sensorium / Orientation: awake and alert Psych mental status grossly normal Skin no rashes or lesions noted and no wounds General Skin Exam: Negative for jaundice or pallor Heart Score History: Slightly/Non-Suspicious ECG: Normal Age: >/= 65 years Risk Factors: >/= 3 Risk Factors or History of CAD Troponin: </= Normal Limit Score: 4 MDM MDM MDM Narrative Medical decision making narrative: Patient presents with atypical pain. Differential is cardiac versus noncardiac. Noncardiac would include indigestion, biliary disease which is unlikely since he denies intolerance to greasy or fried foods and has no tenderness in the right upper quadrant or clinical Jules sign. He has no risk factors for PE and symptoms are not consistent with PE. Symptoms are not consistent with aortic dissection either. History & Record Review Discussion w/independent historian: Patient and Significant other Lab Data Attestation: I reviewed the patient's lab results. Lab results narrative: CBC is remarkable for elevated MCV otherwise unremarkable. Electrolyte panel is normal. First and second troponin are normal with a delta of 1. Labs: Laboratory Results - last 24 hr 11/09/23 11/09/23 09:55 12:05 WBC 9.3 RBC 4.37 L Hgb 15.1 Hct 42.7 MCV 97.7 H MCH 34.6 H MCHC 35.4 RDW Std Deviation 43.6 RDW Coeff of Fritz 11.9 Plt Count 217 MPV 8.6 Immature Gran % (Auto) 0.400 Neut % (Auto) 67.8 Lymph % (Auto) 18.3 L [place] % (Auto) 12.1 H Eos % (Auto) 0.9 Baso % (Auto) 0.5 Absolute Neuts (auto) 6.3 Absolute Lymphs (auto) 1.70 Nucleated RBC % 0 Sodium 136 Potassium 4.4 Chloride 104 Carbon Dioxide 28.0 Anion Gap 4 L BUN 8 Creatinine 0.77 Estim Creat Clear Calc 69.80 Est GFR (MDRD) Af Amer 124 Est GFR (MDRD) Non-Af 103 BUN/Creatinine Ratio 10.4 Glucose 109 H Calcium 9.4 Troponin I High Sens 17 18 Radiography Chest X-Ray - ED: 1 View and Read by ED Physician (Single view chest x-ray reveals pleural plaques consistent with asbestosis. Cardiac silhouette and size normal. Hilum is normal. Osseous structures unremarkable. This is independent reviewed interpreted by me.) Diagnostic Testing: Clinical Impression(s) from Imaging Studies Chest X-Ray 11/09/23 09:42 IMPRESSION: No radiographic evidence of acute cardiopulmonary disease. Electronically Signed: Mesfin Ramirez MD at 10:25 EDT , Differential Diagnosis Chest pain/SOB: pulmonary embolism Reason(s) PE less likely: Positive for Well's <3, not tachycardic and not hypoxic, ACS ACS: Positive for no evidence of ACS based on cardiac biomarkers, EKG without ischemia and history not suggestive of ischemia pain, pneumothorax Reason(s) pneumothorax less likely: Positive for bilateral breath sounds and [employer] withhout PTX, pneumonia Reason(s) pneumonia less likely: Positive for no infiltrate on CXR, no elevation in WBC count, no noted fever and symptoms not consistent with acute infection and aortic dissection Reason(s) Aortic dissection less likely:: Positive for normal vascular exam, normal neurological exam, no widened mediastinum on CXR, pain not sudden onset, no ripping/tearing pain, no pain to back and blood pressure appropriate in ED Treatment and Re-Evaluation :: Patient and spouse were informed of results. Patient be discharged home. He was informed of his cath report and why he was transferred to. he was unaware of the reason. Discharge Plan Triage Chief Complaint: Chest Pain ED Provider: Drew Gomez Dx/Rx/DC Orders Clinical Impression: Central chest pain, Essential (primary) hypertension, Hyperlipidemia, Asbestos exposure, History of coronary artery disease, Chronic breathlessness Instructions: ED Chest Pain, Noncardiac, ED Pain, Acute, Uncertain Cause Prescriptions: No Action aspirin 81 mg tablet,delayed release (DR/EC) 81 mg PO DAILY acetaminophen 500 mg tablet 500 mg PO BID PRN turmeric 400 mg capsule 800 mg PO citalopram 20 mg tablet 20 mg PO DAILY multivitamin [Daily Multi-Vitamin] Tablet 1 tab PO DAILY atorvastatin 80 mg tablet 80 mg PO DAILY Qty: 90 3RF isosorbide mononitrate 30 mg tablet extended release 24 hr See Rx Instructions .ROUTE .COMPLEX Qty: 90 3RF Dose Instruction: TAKE 1 TABLET DAILY Rx Instructions: TAKE 1 TABLET DAILY lisinopril 5 mg tablet 5 mg PO DAILY Qty: 90 4RF citalopram 40 mg tablet 40 mg PO DAILY Primary Care Provider: Hilario Kim Referrals: Ruben Ralph MD [Med Staff - Active Staff] - 3-5 Days Hilario Kim DO [Primary Care Provider] - 1-2 Weeks Print Language: Micronesian Disposition Disposition: Home, Self Care
[2023-11-09 13:26] VITALS: BP 143/74; PULSE 78; RESP 16; TEMP 36.9; O2SAT 97
== END 2023-11-09 13:28 | disposition home or self-care (01) ==
PROVIDERS: Emergency Provider Emergency Medicine; PCP Student in an Organized Health Care Education/Training Program; Visit Provider Emergency Medicine
DX: R07.89 Other chest pain (principal); I25.10 Atherosclerotic heart disease of native coronary artery without angina pectoris; Z77.090 Contact with and (suspected) exposure to asbestos; R06.81 Apnea, not elsewhere classified; E78.5 Hyperlipidemia, unspecified; I10 Essential (primary) hypertension; I25.2 Old myocardial infarction; Z79.82 Long term (current) use of aspirin; Z79.899 Other long term (current) drug therapy; F32.A Depression, unspecified; Z95.5 Presence of coronary angioplasty implant and graft; Z96.652 Presence of left artificial knee joint
CPT/HCPCS: 71045; 80048; 84484; 85025; 93005; 99284; A4216